=== PATIENT | male | born 1970 | race Caucasian/White ===

== ENCOUNTER 2022-01-13 23:08 | Emergency (ER) | payer MEDICARE ==
[~2022-01-13] VITALS: Ht 180.3 cm; Wt 89.0 kg
[2022-01-14] MEDS ORDERED: CEPHALEXIN500 M1 PO (00:53)
== END 2022-01-14 01:13 | disposition home or self-care (01) ==
LOC: ED 23:08
DX: H60.91 Unspecified otitis externa, right ear (principal); H66.91 Otitis media, unspecified, right ear
CPT/HCPCS: 99282; A9270

== ENCOUNTER 2022-10-04 06:16 | Emergency (ER) | payer MEDICARE ==
[~2022-10-04] VITALS: Ht 180.3 cm; Wt 93.4 kg
[~2022-10-04 06:16] MED LIST: CEPHALEXIN500 M1 PO
[2022-10-04] MEDS ORDERED: LORAZEPAM1 MG PO (06:27)
[2022-10-04] MEDS ORDERED: AMOXICILLIN500 MG PO (06:32)
== END 2022-10-04 06:41 | disposition home or self-care (01) ==
LOC: ED 06:16
DX: H66.91 Otitis media, unspecified, right ear (principal); H60.91 Unspecified otitis externa, right ear; J02.9 Acute pharyngitis, unspecified
CPT/HCPCS: 99282

== ENCOUNTER 2025-03-06 15:35 | Emergency (ER) | payer MEDICARE, OTHER ==
[~2025-03-06] VITALS: Ht 180.3 cm; Wt 92.0 kg
[~2025-03-06 15:35] MED LIST changes: +AMOXICILLIN500 MG PO; +LORAZEPAM1 MG PO
[2025-03-06] MEDS ORDERED: DULOXETINE HCL60 MG PO (16:02)
[2025-03-06] MEDS ORDERED: LOSARTAN POTASS25 MG PO (16:03)
[2025-03-06] MEDS ORDERED: TRAZODONE HCL100 MG PO (16:03)
[2025-03-06 16:36] LABS: CORONAVIRUS COVID-19 AG NEGATIVE (NEGATIVE)
[2025-03-06 16:46] LABS: BASOPHILS 0.2 % (0.2-1.2); EOSINOPHILS 2.2 % (0.8-7.0); LYMPHOCYTES 8.6 % (21.8-53.1); MCH 31.9 PG (25.7-32.2); MCHC 34.4 g/dL (32.3-36.5); MCV 92.5 fL (79.0-92.2); MONOCYTES 12.5 % (5.3-12.2); NEUTROPHILS 76.1 % (34.0-67.9); RBC 3.89 M/uL (4.63-6.08)
[2025-03-06 17:14] LABS: ALT (SGPT) 18.0 U/L (14-59); AST (SGOT) 10.0 U/L (15-37); GLOMERULAR FILTRATION RATE,EST 79.0 mL/min (>60); PROTEIN, TOTAL 7.1 g/dL (6.4-8.2); UREA NITROGEN 11.0 mg/dL (7-18)
[2025-03-06] MEDS ORDERED: ACETAMINOPHEN 500 MG TAB PO ONE (17:45)
[2025-03-06] MEDS ORDERED: GUAIFENESIN/CODEINE 5 ML UDC PO ONE (17:45)
[2025-03-06] MEDS ORDERED: ZITHROMAX250 MG PO (19:04)
[2025-03-06] MEDS ORDERED: AMOX TR-K CLV1 EAC1 PO (19:04)
[2025-03-06] MEDS ORDERED: BENZONATATE100 MG PO (19:04)
[2025-03-06] MEDS ORDERED: AZITHROMYCIN 250 MG TAB PO ONE (19:15)
[2025-03-06] MEDS ORDERED: AMOXICILLIN/CLAVULANATE K 875 MG TAB PO ONE (19:15)
[2025-03-06 19:20] VITALS: BP 104/82
== END 2025-03-06 19:20 | disposition home or self-care (01) ==
LOC: ED 15:35
PROVIDERS: Emergency Medicine
DX: J18.9 Pneumonia, unspecified organism (principal); R91.1 Solitary pulmonary nodule; D64.9 Anemia, unspecified; Z85.51 Personal history of malignant neoplasm of bladder; Z79.899 Other long term (current) drug therapy
CPT/HCPCS: 36415; 71045; 71260; 80053; 85025; 99284-25; A9270; Q9967